=== PATIENT | male | born 1990 | race African-American/Black ===

== ENCOUNTER 2019-09-16 07:21 | Emergency (ER) | payer SELFPAY ==
[~2019-09-16] VITALS: Ht 175.3 cm; Wt 85.4 kg
[2019-09-16 07:23] VITALS: BP 130/88
--- NOTE | 2019-09-16 07:47 | PHYS DOC ---
Past Medical History Past Medical History: No Pertinent History Past Surgical History: No Surgical History Alcohol Use: Occasionally Drug Use: None Adult General Chief Complaint Chief Complaint: SEXUALLY TRANSMITTED DISEASE HPI HPI Patient is a 29 year old patient with history of HIV on treatment who presents with complaining of rash in private area. Patient states he had an nontender/penis for the last 5 days that gradually getting better. Patient denies fever and chills, nausea and vomiting, groin lymphadenopathy of pain. Patient states he had the same rash previously that resolved spontaneously without any problem. Patient denies having any new sexual partner. Review of Systems Review of Systems Constitutional: Denies fever or chills [] Eyes: Denies change in visual acuity, redness, or eye pain [] HENT: Denies nasal congestion or sore throat [] Respiratory: Denies cough or shortness of breath [] Cardiovascular: No additional information not addressed in HPI [] GI: Denies abdominal pain, nausea, vomiting, bloody stools or diarrhea [] : Denies dysuria or hematuria [] Musculoskeletal: Denies back pain or joint pain [] Integument: Reports rash Neurologic: Denies headache, focal weakness or sensory changes [] Endocrine: Denies polyuria or polydipsia [] All other systems were reviewed and found to be within normal limits, except as documented in this note. Allergies Allergies Allergies Coded Allergies Type Severity Reaction Last Updated Verified amoxicillin Allergy Intermediate Hives 06/25/14 Yes Physical Exam Physical Exam Constitutional: Well developed, well nourished, no acute distress, non-toxic appearance. [] HENT: Normocephalic, atraumatic Eyes: PERRLA, EOMI, conjunctiva normal, no discharge. [] Neck: Normal range of motion, no tenderness, supple, no stridor. [] Cardiovascular:Heart rate regular rhythm, no murmur [] Lungs & Thorax: Bilateral breath sounds clear to auscultation [] Abdomen: Bowel sounds normal, soft, no tenderness, no masses, no pulsatile masses. 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 [] Back: No tenderness, no CVA tenderness. [] Extremities: No tenderness, no cyanosis, no clubbing, ROM intact, no edema. [] Neurologic: Alert and oriented X 3. Psychologic: Affect normal, judgement normal, mood normal. [] Current Patient Data Vital Signs Vital Signs Date Time Temp Pulse Resp B/P (MAP) Pulse Ox O2 Delivery O2 Flow Rate FiO2 09/16/19 07:23 98.3 81 18 130/88 (102) 100 Room Air 98.3 EKG EKG [] Radiology/Procedures Radiology/Procedures [] Course & Med Decision Making Course & Med Decision Making Evaluation of patient in ER showed 29-year-old male patient with history of HIV presented with complaining of penile rash for 5 days that getting better with history of the same rash previously. Patient did not have complaining of pain or burning feeling. Herpes and GC chlamydia swab was obtained and treatment for STD was not given and patient was advised to follow with his infectious disease or HIV specialist regarding recurrent penile rash. Dragon Disclaimer Dragon Disclaimer This electronic medical record was generated, in whole or in part, using a voice recognition dictation system. Departure Departure Impression: Primary Impression: Rash of penis Additional Impression: HIV (human immunodeficiency virus infection) Disposition: 01 HOME, SELF-CARE (at [phone]) Condition: STABLE Referrals: NO PCP (PCP) Patient Instructions: Rash, Sexually Transmitted Disease Additional Instructions: Follow-up with your HIV physician regarding genital rash Drink plenty of liquids Return to ER if not getting better Problem Qualifiers Additional Impression: HIV (human immunodeficiency virus infection) HIV symptom status: unspecified Qualified Codes: B20 - Human immunodeficiency virus [HIV] disease JOEL MARCELO MD Sep 16, 2019 07:47
[2019-09-19 14:10] LABS: HERPES SIMPLEX TYPE 1 Negative (Negative); HERPES SIMPLEX TYPE 2 Positive (Negative)
== END 2019-09-16 08:29 | disposition home or self-care (01) ==
LOC: ER 07:21
DX: N48.29 Other inflammatory disorders of penis (principal); Z21 Asymptomatic human immunodeficiency virus [HIV] infection status; A64 Unspecified sexually transmitted disease
CPT/HCPCS: 36415; 87491; 87529; 87591; 99284

== ENCOUNTER 2021-03-30 10:41 | Emergency (ER) | payer SELFPAY | END 2021-03-30 11:44 | disposition left against medical advice (07) | LOC: ER 10:41 | DX: R21 Rash and other nonspecific skin eruption (principal); Z53.21 Procedure and treatment not carried out due to patient leaving prior to being seen by health care provider ==